=== PATIENT | male | born 1975 | race Hispanic/Latino ===

== ENCOUNTER 2019-12-22 07:18 | Inpatient (IN) | payer OTHER, SELFPAY ==
[~2019-12-22] VITALS: Ht 170.2 cm; Wt 103.6 kg
[2019-12-22] MEDS ORDERED: METHYLPREDNISOLONE SOD SUCC 40MG/ML 1ML ONE ×2 (08:05→14:15)
[2019-12-22] MEDS ORDERED: SODIUM CHLORIDE 0.9% 1000ML 1,000 ML IV ONE (08:05)
[2019-12-22] MEDS ORDERED: LEVOFLOXACIN 500 MG/D5W 100 ML 100 ML ONE (08:05)
[2019-12-22 08:20] LABS: BASOPHILS % (AUTO) 0.1 % (0.0-5.0); HEMATOCRIT 43.7 % (42-54); LYMPHOCYTES % (AUTO) 9.9 % (21.0-51.0); MEAN CORPUSCULAR HEMOGLOBIN 31.1 pg (27.0-33.0); MEAN CORPUSCULAR HGB CONC 34.8 g/dL (32.0-36.0); MEAN CORPUSCULAR VOLUME 89.4 fL (79-99); MONOCYTES % (AUTO) 5.1 % (3.0-13.0); NEUTROPHILS % (AUTO) 84.2 % (40.0-77.0); PLATELET COUNT (AUTO) 262 K/uL (130-400); RED BLOOD CELL COUNT(AUTO) 4.89 MIL/uL (4.50-6.20); RED CELL DISTRIBUTION WIDTH 12.5 % (11.0-15.5); WHITE BLOOD COUNT (AUTO) 10.7 K/uL (4.8-10.8)
[2019-12-22 08:33] LABS: BILIRUBIN,URINE Negative (NEGATIVE); GLUCOSE, URINE (UA) Negative (NEGATIVE); KETONES,URINE Negative (NEGATIVE); LEUKOCYTE ESTERASE ,URINE Negative (NEGATIVE); NITRATE,URINE Negative (NEGATIVE); OCCULT BLOOD,URINE Negative (NEGATIVE); PH,URINE 5.5 (5.0-8.0); PROTEIN,URINE POS 1+ mg/dL (NEGATIVE)
[2019-12-22 08:34] LABS: APPEARANCE,URINE SLIGHTLY CLOUDY (CLEAR); COLOR,URINE DARK YELLOW (YELLOW)
[2019-12-22 08:44] LABS: ALANINE AMINOTRANSFERASE 72 U/L (12-78); ALBUMIN 3.7 g/dL (3.5-5.0); ASPARTATE AMINOTRANSFERASE 56 U/L (10-37); BILIRUBIN,TOTAL 0.8 mg/dL (0.2-1.0); CARBON DIOXIDE 27 mmol/L (21-32); CHLORIDE 102 mmol/L (101-111); CREATINE KINASE, TOTAL 215 U/L (21-232); GLOMERULAR FILTR. RATE CALC 86 mL/min (>60); GLUCOSE,RANDOM 141 mg/dL (70-105); MYOGLOBIN 113 ng/mL (10-92); POTASSIUM 3.2 mmol/L (3.5-5.1); SODIUM SERUM 140 mmol/L (136-145); TOTAL PROTEIN, SERUM 8.4 g/dL (6.0-8.3); TROPONIN I < 0.04 ng/mL (0.00-0.06); UREA NITROGEN, BLOOD 22 mg/dL (7-18)
[2019-12-22 08:47] LABS: BACTERIA,URINE Rare /HPF (None Seen); RBC,URINE 0-1 /HPF (0-1); SQUAMOUS EPITHELIAL CELL,UR Rare /HPF (0-2)
[2019-12-22 08:53] LABS: INR 0.94 (0.85-1.15); PARTIAL THROMBOPLASTIN TIME 24.7 SEC (26.3-35.5); PROTHROMBIN TIME 10.2 SEC (9.6-11.6)
[2019-12-22] MEDS: BENZONATATE 100 MG CAPSULE PO SCH ×2 (14:00→21:00)
[2019-12-22] MEDS ORDERED: LACTULOSE 20 GM/30 ML UDCUP PO PRN (14:00)
[2019-12-22] MEDS ORDERED: ERGOCALCIFEROL (VITAMIN D2) 50,000 UNIT CAPSULE PO ONE (14:00)
[2019-12-22] MEDS ORDERED: ONDANSETRON HCL 4 MG/2 ML VIAL IV PRN (14:00)
[2019-12-22] MEDS ORDERED: NITROGLYCERIN 0.4 MG SL TAB SL PRN (14:00)
[2019-12-22] MEDS ORDERED: MORPHINE SULFATE 2 MG/ML 1ML SYG IV PRN (14:00)
[2019-12-22] MEDS: METHYLPREDNISOLONE SOD SUCC 40MG/ML 1ML IVP SCH ×2 (14:00→21:00)
[2019-12-22] MEDS ORDERED: ACETAMINOPHEN 325 MG TAB PO PRN ×2 (14:00)
[2019-12-22] MEDS: CEFTRIAXONE SODIUM 1 GM IVP SCH (14:00)
[2019-12-22] MEDS ORDERED: CEFTRIAXONE SODIUM 1 GM ONE (14:16)
[2019-12-22] MEDS ORDERED: BENZONATATE 100 MG CAPSULE PO ONE (14:16)
[2019-12-22] MEDS ORDERED: SODIUM CHLORIDE 0.9% 50 ML IV ONE (14:17)
[2019-12-22] MEDS ORDERED: FAMOTIDINE/PF 20 MG/2 ML VIAL IV ONE (20:59)
[2019-12-22] MEDS ORDERED: ACETYLCYSTEINE 600 MG CAPSULE ONE (20:59)
[2019-12-22] MEDS ORDERED: ERGOCALCIFEROL (VITAMIN D2) 50,000 UNIT CAPSULE ONE (20:59)
[2019-12-22] MEDS: FAMOTIDINE/PF 20 MG/2 ML VIAL IV SCH (21:00)
[2019-12-22] MEDS: ACETYLCYSTEINE 600 MG CAPSULE PO SCH (21:00)
[2019-12-22] MEDS ORDERED: DEXA4TAB PO (21:53)
[2019-12-22] MEDS ORDERED: AZIT250T9 PO (21:53)
[2019-12-22] MEDS ORDERED: BENZ-51 PO (21:53)
[2019-12-22 22:30] VITALS: BP 120/62
[2019-12-22] MEDS: GUAIFENESIN-DM 200/20 MG 10 ML PO PRN (23:08)
[2019-12-23] VITALS (10 sets, daily range): BP systolic 92–134; BP diastolic 50–69
[2019-12-23] MEDS: CEFTRIAXONE SODIUM 1 GM IVP SCH ×2 (02:04→13:29)
[2019-12-23 04:21] LABS: BASOPHILS % (AUTO) 0.1 % (0.0-5.0); HEMATOCRIT 40.4 % (42-54); LYMPHOCYTES % (AUTO) 8.2 % (21.0-51.0); MEAN CORPUSCULAR HEMOGLOBIN 30.5 pg (27.0-33.0); MEAN CORPUSCULAR HGB CONC 34.2 g/dL (32.0-36.0); MEAN CORPUSCULAR VOLUME 89.2 fL (79-99); MONOCYTES % (AUTO) 5.4 % (3.0-13.0); NEUTROPHILS % (AUTO) 85.6 % (40.0-77.0); PLATELET COUNT (AUTO) 275 K/uL (130-400); RED BLOOD CELL COUNT(AUTO) 4.53 MIL/uL (4.50-6.20); RED CELL DISTRIBUTION WIDTH 12.7 % (11.0-15.5); WHITE BLOOD COUNT (AUTO) 12.7 K/uL (4.8-10.8)
[2019-12-23 04:37] LABS: ALANINE AMINOTRANSFERASE 66 U/L (12-78); ALBUMIN 3.4 g/dL (3.5-5.0); ASPARTATE AMINOTRANSFERASE 51 U/L (10-37); BILIRUBIN,TOTAL 0.6 mg/dL (0.2-1.0); CARBON DIOXIDE 28 mmol/L (21-32); CHLORIDE 102 mmol/L (101-111); CREATININE 0.8 mg/dL (0.5-1.5); GLOMERULAR FILTR. RATE CALC 111 mL/min (>60); GLUCOSE,RANDOM 120 mg/dL (70-105); LACTATE DEHYDROGENASE 280 U/L (81-234); POTASSIUM 3.5 mmol/L (3.5-5.1); SODIUM SERUM 139 mmol/L (136-145); TOTAL PROTEIN, SERUM 7.6 g/dL (6.0-8.3); UREA NITROGEN, BLOOD 17 mg/dL (7-18)
[2019-12-23] MEDS ORDERED: ENOXAPARIN SODIUM 40 MG/0.4 ML SYRINGE SQ SCH (09:00)
[2019-12-23] MEDS: ACETYLCYSTEINE 600 MG CAPSULE PO SCH ×2 (09:48→21:00)
[2019-12-23] MEDS: METHYLPREDNISOLONE SOD SUCC 40MG/ML 1ML IVP SCH ×3 (09:48→21:00)
[2019-12-23] MEDS: FAMOTIDINE/PF 20 MG/2 ML VIAL IV SCH ×2 (09:48→21:00)
[2019-12-23] MEDS: ZINC SULFATE 220 CAPSULE PO SCH (09:49)
[2019-12-23] MEDS: BENZONATATE 100 MG CAPSULE PO SCH ×3 (09:49→21:00)
[2019-12-23] MEDS: ASCORBIC ACID 500 MG TAB PO SCH (09:49)
[2019-12-23 12:04] LABS: ABG BASE EXCESS 0.1 mmol/L (-2.0-3.0); ABG HCO3 22.1 mmol/L (21.0-28.0); ABG OXYGEN SATURATION 93.2 % (95.0-99.0); ABG PCO2 29 mmHg (35-48)
[2019-12-23] MEDS: GUAIFENESIN-DM 200/20 MG 10 ML PO PRN (15:55)
[2019-12-23] MEDS ORDERED: PHARMACY COMMUNICATION MISC SCH (17:00)
--- NOTE | 2019-12-23 18:01 | NUR ---
DC PLAN CALLED SPOUSE. PATIENT LIVES WITH SPOUSE. INDEPENDENT ABLE TO PERFORM ADL'S. PATIENT HAS NO SERVICES OR DME'S. FEELS SAFE TO RETURN HOME. SAID TESTED POSITIVE LAST WEEK. REST OF FAMILY TESTED NEGATIVE. AWARE TO QUARINTINE FOR 14 DAYS ANYWAY. Addendum: 12/23/19 at 1802 by RON DENNISON RN CM Amended: Links added.
[2019-12-23] MEDS: GUAIFENESIN-CODEINE 5 ML SYRUP PO PRN (18:57)
[2019-12-23] MEDS ORDERED: COMPOUND IV REFRIGERATED 1 EACH IVSOLN MISC PRN (20:00)
[2019-12-23] MEDS ORDERED: REMDESIVIR (EUA) 520 200 MG in SODIUM CHLORIDE 0.9% 250 ML IV ONE (20:00)
[2019-12-23] MEDS ORDERED: SODIUM CHLORIDE 0.9% 500ML 500 ML IV ONE (21:15)
[2019-12-24 00:01] VITALS: BP 118/67
[2019-12-24] MEDS: CEFTRIAXONE SODIUM 1 GM IVP SCH ×2 (02:00→13:47)
[2019-12-24 04:31] LABS: BASOPHILS % (AUTO) 0.1 % (0.0-5.0); HEMATOCRIT 37.1 % (42-54); LYMPHOCYTES % (AUTO) 5.2 % (21.0-51.0); MEAN CORPUSCULAR HGB CONC 34.8 g/dL (32.0-36.0); MEAN CORPUSCULAR VOLUME 89.2 fL (79-99); NEUTROPHILS % (AUTO) 89.3 % (40.0-77.0); PLATELET COUNT (AUTO) 291 K/uL (130-400); RED BLOOD CELL COUNT(AUTO) 4.16 MIL/uL (4.50-6.20); RED CELL DISTRIBUTION WIDTH 12.6 % (11.0-15.5); WHITE BLOOD COUNT (AUTO) 15.3 K/uL (4.8-10.8)
[2019-12-24 04:54] LABS: ALANINE AMINOTRANSFERASE 79 U/L (12-78); ALBUMIN 3.2 g/dL (3.5-5.0); ASPARTATE AMINOTRANSFERASE 50 U/L (10-37); BILIRUBIN,TOTAL 0.8 mg/dL (0.2-1.0); CARBON DIOXIDE 29 mmol/L (21-32); CHLORIDE 101 mmol/L (101-111); CREATININE 0.8 mg/dL (0.5-1.5); GLOMERULAR FILTR. RATE CALC 111 mL/min (>60); GLUCOSE,RANDOM 152 mg/dL (70-105); LACTATE DEHYDROGENASE 296 U/L (81-234); POTASSIUM 3.7 mmol/L (3.5-5.1); SODIUM SERUM 136 mmol/L (136-145); TOTAL PROTEIN, SERUM 7.5 g/dL (6.0-8.3); UREA NITROGEN, BLOOD 15 mg/dL (7-18)
[2019-12-24] MEDS: PHARMACY COMMUNICATION MISC SCH (06:00)
[2019-12-24 08:00] VITALS: BP 119/65
[2019-12-24] MEDS: FAMOTIDINE/PF 20 MG/2 ML VIAL IV SCH ×2 (11:01→21:20)
[2019-12-24] MEDS: ACETYLCYSTEINE 600 MG CAPSULE PO SCH ×2 (11:08→21:20)
[2019-12-24] MEDS: BENZONATATE 100 MG CAPSULE PO SCH ×3 (11:08→21:20)
[2019-12-24] MEDS: METHYLPREDNISOLONE SOD SUCC 40MG/ML 1ML IVP SCH ×3 (11:08→21:20)
[2019-12-24] MEDS: ZINC SULFATE 220 CAPSULE PO SCH (11:09)
[2019-12-24] MEDS: ASCORBIC ACID 500 MG TAB PO SCH (11:09)
[2019-12-24] MEDS: DOCUSATE SODIUM 100 MG CAP PO SCH (11:09)
[2019-12-24] MEDS: ENOXAPARIN SODIUM 40 MG/0.4 ML SYRINGE SQ SCH ×2 (11:11→22:00)
[2019-12-24 12:01] VITALS: BP 143/53
[2019-12-24 16:00] VITALS: BP 114/68
[2019-12-24] MEDS ORDERED: REMDESIVIR (EUA) 520 100 MG in SODIUM CHLORIDE 0.9% 250 ML IV SCH (20:00)
[2019-12-24 21:00] VITALS: BP 111/60
[2019-12-25 00:06] VITALS: BP 108/61
[2019-12-25] MEDS: CEFTRIAXONE SODIUM 1 GM IVP SCH ×2 (03:01→14:22)
[2019-12-25 04:24] LABS: BASOPHILS % (AUTO) 0.3 % (0.0-5.0); EOSINOPHILS % (AUTO) 0.6 % (0.0-8.0); HEMATOCRIT 38.9 % (42-54); LYMPHOCYTES % (AUTO) 5.8 % (21.0-51.0); MEAN CORPUSCULAR HEMOGLOBIN 30.4 pg (27.0-33.0); MEAN CORPUSCULAR HGB CONC 34.2 g/dL (32.0-36.0); MEAN CORPUSCULAR VOLUME 88.8 fL (79-99); MONOCYTES % (AUTO) 3.7 % (3.0-13.0); NEUTROPHILS % (AUTO) 86.5 % (40.0-77.0); PLATELET COUNT (AUTO) 366 K/uL (130-400); RED BLOOD CELL COUNT(AUTO) 4.38 MIL/uL (4.50-6.20); RED CELL DISTRIBUTION WIDTH 12.6 % (11.0-15.5)
[2019-12-25 04:41] LABS: ALANINE AMINOTRANSFERASE 75 U/L (12-78); ASPARTATE AMINOTRANSFERASE 43 U/L (10-37); BILIRUBIN,TOTAL 0.6 mg/dL (0.2-1.0); CARBON DIOXIDE 28 mmol/L (21-32); CHLORIDE 101 mmol/L (101-111); CREATININE 0.8 mg/dL (0.5-1.5); GLOMERULAR FILTR. RATE CALC 111 mL/min (>60); GLUCOSE,RANDOM 149 mg/dL (70-105); LACTATE DEHYDROGENASE 333 U/L (81-234); POTASSIUM 3.7 mmol/L (3.5-5.1); SODIUM SERUM 139 mmol/L (136-145); TOTAL PROTEIN, SERUM 7.7 g/dL (6.0-8.3); UREA NITROGEN, BLOOD 20 mg/dL (7-18)
[2019-12-25] MEDS: PHARMACY COMMUNICATION MISC SCH (06:00)
[2019-12-25 08:00] VITALS: BP 101/52
[2019-12-25] MEDS ORDERED: REMDESIVIR (EUA) 520 100 MG in SODIUM CHLORIDE 0.9% 250 ML IV SCH (08:15)
[2019-12-25] MEDS: METHYLPREDNISOLONE SOD SUCC 40MG/ML 1ML IVP SCH (08:30)
[2019-12-25] MEDS: ASCORBIC ACID 500 MG TAB PO SCH (08:31)
[2019-12-25] MEDS: BENZONATATE 100 MG CAPSULE PO SCH ×3 (08:31→21:59)
[2019-12-25] MEDS: FAMOTIDINE/PF 20 MG/2 ML VIAL IV SCH ×2 (08:31→21:59)
[2019-12-25] MEDS: ACETYLCYSTEINE 600 MG CAPSULE PO SCH ×2 (08:31→21:59)
[2019-12-25] MEDS: ZINC SULFATE 220 CAPSULE PO SCH (08:31)
[2019-12-25] MEDS: DOCUSATE SODIUM 100 MG CAP PO SCH (08:31)
[2019-12-25] MEDS: ENOXAPARIN SODIUM 40 MG/0.4 ML SYRINGE SQ SCH ×2 (09:26→22:00)
[2019-12-25 12:00] VITALS: BP 125/75
[2019-12-25 16:00] VITALS: BP 106/59
[2019-12-25 19:19] VITALS: BP 126/65
[2019-12-25] MEDS: DEXAMETHASONE SOD PHOSPHATE 4 MG/ML 1ML VIAL IVP SCH (21:59)
[2019-12-26 00:01] VITALS: BP 102/47
[2019-12-26] MEDS: CEFTRIAXONE SODIUM 1 GM IVP SCH ×2 (02:13→13:50)
[2019-12-26 04:01] VITALS: BP 94/44
[2019-12-26 04:41] LABS: CREATININE 0.8 mg/dL (0.5-1.5); POTASSIUM 3.8 mmol/L (3.5-5.1)
[2019-12-26 07:00] VITALS: BP 114/62
[2019-12-26] MEDS: DEXAMETHASONE SOD PHOSPHATE 4 MG/ML 1ML VIAL IVP SCH ×2 (08:37→22:38)
[2019-12-26] MEDS: DOCUSATE SODIUM 100 MG CAP PO SCH (08:37)
[2019-12-26] MEDS: ASCORBIC ACID 500 MG TAB PO SCH (08:37)
[2019-12-26] MEDS: ZINC SULFATE 220 CAPSULE PO SCH (08:37)
[2019-12-26] MEDS: BENZONATATE 100 MG CAPSULE PO SCH ×3 (08:38→22:38)
[2019-12-26] MEDS: ACETYLCYSTEINE 600 MG CAPSULE PO SCH ×2 (08:38→22:38)
[2019-12-26] MEDS: FAMOTIDINE/PF 20 MG/2 ML VIAL IV SCH ×2 (08:39→22:38)
[2019-12-26] MEDS: ENOXAPARIN SODIUM 40 MG/0.4 ML SYRINGE SQ SCH ×2 (09:41→22:38)
[2019-12-26 11:00] VITALS: BP 111/63
[2019-12-26] MEDS: REMDESIVIR (EUA) 520 100 MG in SODIUM CHLORIDE 0.9% 250 ML IV SCH (13:50)
[2019-12-26 15:00] VITALS: BP 101/52
[2019-12-26 19:25] VITALS: BP 121/65
[2019-12-27] VITALS (11 sets, daily range): BP systolic 80–119; BP diastolic 38–75
[2019-12-27] MEDS: CEFTRIAXONE SODIUM 1 GM IVP SCH ×2 (02:35→13:36)
[2019-12-27] MEDS ORDERED: LOSA1TAB54 PO (03:24)
[2019-12-27] MEDS ORDERED: PRED10TA23 PO (03:51)
[2019-12-27] MEDS ORDERED: PRED10TA3 PO (03:51)
[2019-12-27] MEDS ORDERED: CEPH750C7 PO (03:51)
[2019-12-27] MEDS ORDERED: ASPI-1005 PO (03:51)
[2019-12-27 04:20] LABS: BASOPHILS % (AUTO) 0.6 % (0.0-5.0); HEMATOCRIT 39.6 % (42-54); LYMPHOCYTES % (AUTO) 7.8 % (21.0-51.0); MEAN CORPUSCULAR HEMOGLOBIN 30.3 pg (27.0-33.0); MEAN CORPUSCULAR HGB CONC 34.1 g/dL (32.0-36.0); MEAN CORPUSCULAR VOLUME 88.8 fL (79-99); MONOCYTES % (AUTO) 4.9 % (3.0-13.0); NEUTROPHILS % (AUTO) 80.7 % (40.0-77.0); PLATELET COUNT (AUTO) 428 K/uL (130-400); RED BLOOD CELL COUNT(AUTO) 4.46 MIL/uL (4.50-6.20); RED CELL DISTRIBUTION WIDTH 12.3 % (11.0-15.5); WHITE BLOOD COUNT (AUTO) 14.2 K/uL (4.8-10.8)
[2019-12-27 04:32] LABS: ALBUMIN 2.9 g/dL (3.5-5.0); BILIRUBIN,TOTAL 0.6 mg/dL (0.2-1.0); CREATININE 0.7 mg/dL (0.5-1.5); CRP QUANTITATIVE 37.5 mg/L (0.00-9.0); POTASSIUM 4.1 mmol/L (3.5-5.1); TOTAL PROTEIN, SERUM 7.2 g/dL (6.0-8.3)
[2019-12-27] MEDS: PHARMACY COMMUNICATION MISC SCH ×2 (06:00→06:38)
[2019-12-27] MEDS: FAMOTIDINE/PF 20 MG/2 ML VIAL IV SCH ×2 (08:31→21:03)
[2019-12-27] MEDS: ZINC SULFATE 220 CAPSULE PO SCH (08:32)
[2019-12-27] MEDS: DEXAMETHASONE SOD PHOSPHATE 4 MG/ML 1ML VIAL IVP SCH ×2 (08:32→21:03)
[2019-12-27] MEDS: ASCORBIC ACID 500 MG TAB PO SCH (08:32)
[2019-12-27] MEDS: BENZONATATE 100 MG CAPSULE PO SCH ×3 (08:32→21:04)
[2019-12-27] MEDS: ACETYLCYSTEINE 600 MG CAPSULE PO SCH ×2 (08:32→21:03)
[2019-12-27] MEDS: DOCUSATE SODIUM 100 MG CAP PO SCH (08:32)
[2019-12-27] MEDS: ENOXAPARIN SODIUM 40 MG/0.4 ML SYRINGE SQ SCH ×2 (10:20→22:00)
[2019-12-27] MEDS: GUAIFENESIN-CODEINE 5 ML SYRUP PO PRN ×2 (10:25→21:04)
[2019-12-27] MEDS: REMDESIVIR (EUA) 520 100 MG in SODIUM CHLORIDE 0.9% 250 ML IV SCH (13:37)
--- NOTE | 2019-12-27 19:00 | NUR ---
ACCEPTED CARE ACCEPTED CARE REPORT RECEIVED USING SBAR FORMAT.
[2019-12-28] VITALS (11 sets, daily range): BP systolic 100–126; BP diastolic 54–72
[2019-12-28] MEDS: CEFTRIAXONE SODIUM 1 GM IVP SCH (01:19)
[2019-12-28] MEDS: GUAIFENESIN-CODEINE 5 ML SYRUP PO PRN ×2 (01:21→06:54)
[2019-12-28 04:47] LABS: BASOPHILS % (AUTO) 0.6 % (0.0-5.0); HEMATOCRIT 40.7 % (42-54); LYMPHOCYTES % (AUTO) 7.8 % (21.0-51.0); MEAN CORPUSCULAR HEMOGLOBIN 30.5 pg (27.0-33.0); MEAN CORPUSCULAR HGB CONC 34.2 g/dL (32.0-36.0); MEAN CORPUSCULAR VOLUME 89.5 fL (79-99); MONOCYTES % (AUTO) 4.1 % (3.0-13.0); NEUTROPHILS % (AUTO) 81.7 % (40.0-77.0); PLATELET COUNT (AUTO) 440 K/uL (130-400); RED BLOOD CELL COUNT(AUTO) 4.55 MIL/uL (4.50-6.20); RED CELL DISTRIBUTION WIDTH 12.3 % (11.0-15.5); WHITE BLOOD COUNT (AUTO) 14.6 K/uL (4.8-10.8)
[2019-12-28 05:04] LABS: BILIRUBIN,TOTAL 0.5 mg/dL (0.2-1.0); CREATININE 0.9 mg/dL (0.5-1.5); CRP QUANTITATIVE 23.2 mg/L (0.00-9.0); TOTAL PROTEIN, SERUM 7.3 g/dL (6.0-8.3)
[2019-12-28] MEDS: PHARMACY COMMUNICATION MISC SCH (06:00)
[2019-12-28] MEDS: ENOXAPARIN SODIUM 40 MG/0.4 ML SYRINGE SQ SCH ×2 (08:43→23:39)
[2019-12-28] MEDS: DEXAMETHASONE SOD PHOSPHATE 4 MG/ML 1ML VIAL IVP SCH ×2 (08:44→20:26)
[2019-12-28] MEDS: BENZONATATE 100 MG CAPSULE PO SCH ×3 (08:44→20:26)
[2019-12-28] MEDS: ASCORBIC ACID 500 MG TAB PO SCH (08:44)
[2019-12-28] MEDS: DOCUSATE SODIUM 100 MG CAP PO SCH (08:44)
[2019-12-28] MEDS: ZINC SULFATE 220 CAPSULE PO SCH (08:44)
[2019-12-28] MEDS: FAMOTIDINE/PF 20 MG/2 ML VIAL IV SCH ×2 (08:44→20:26)
[2019-12-28] MEDS: ACETYLCYSTEINE 600 MG CAPSULE PO SCH ×2 (09:00→20:26)
[2019-12-28] MEDS: GUAIFENESIN-CODEINE 5 ML SYRUP PO SCH ×3 (14:23→23:40)
[2019-12-28] MEDS: REMDESIVIR (EUA) 520 100 MG in SODIUM CHLORIDE 0.9% 250 ML IV SCH (14:23)
--- NOTE | 2019-12-28 19:00 | NUR ---
ACCEPTED CARE ACCEPTED CARE REPORT RECEIVED USING SBAR FORMAT. PATIENT IS AWAKE SITTING IN CHAIR WATCHING TV AND IN NO APPARENT DISTRESS.
[2019-12-29] VITALS (9 sets, daily range): BP systolic 92–115; BP diastolic 46–63
[2019-12-29 04:11] LABS: BASOPHILS % (AUTO) 0.6 % (0.0-5.0); EOSINOPHILS % (AUTO) 0.1 % (0.0-8.0); LYMPHOCYTES % (AUTO) 10.4 % (21.0-51.0); MEAN CORPUSCULAR HEMOGLOBIN 30.3 pg (27.0-33.0); MEAN CORPUSCULAR HGB CONC 34.4 g/dL (32.0-36.0); MEAN CORPUSCULAR VOLUME 88.2 fL (79-99); MONOCYTES % (AUTO) 6.5 % (3.0-13.0); NEUTROPHILS % (AUTO) 77.3 % (40.0-77.0); PLATELET COUNT (AUTO) 426 K/uL (130-400); RED BLOOD CELL COUNT(AUTO) 4.65 MIL/uL (4.50-6.20); RED CELL DISTRIBUTION WIDTH 12.5 % (11.0-15.5); WHITE BLOOD COUNT (AUTO) 15.7 K/uL (4.8-10.8)
[2019-12-29 04:27] LABS: ALBUMIN 3.1 g/dL (3.5-5.0); BILIRUBIN,TOTAL 0.6 mg/dL (0.2-1.0); CREATININE 0.8 mg/dL (0.5-1.5); CRP QUANTITATIVE 20.7 mg/L (0.00-9.0); POTASSIUM 4.1 mmol/L (3.5-5.1); TOTAL PROTEIN, SERUM 7.2 g/dL (6.0-8.3)
[2019-12-29] MEDS: GUAIFENESIN-CODEINE 5 ML SYRUP PO SCH ×3 (06:21→18:00)
[2019-12-29] MEDS: FAMOTIDINE/PF 20 MG/2 ML VIAL IV SCH ×2 (10:26→21:22)
[2019-12-29] MEDS: ACETYLCYSTEINE 600 MG CAPSULE PO SCH ×2 (10:26→21:22)
[2019-12-29] MEDS: DEXAMETHASONE SOD PHOSPHATE 4 MG/ML 1ML VIAL IVP SCH (10:26)
[2019-12-29] MEDS: DOCUSATE SODIUM 100 MG CAP PO SCH (10:26)
[2019-12-29] MEDS: ENOXAPARIN SODIUM 40 MG/0.4 ML SYRINGE SQ SCH ×2 (10:27→22:45)
[2019-12-29] MEDS: ZINC SULFATE 220 CAPSULE PO SCH (10:27)
[2019-12-29] MEDS: BENZONATATE 100 MG CAPSULE PO SCH ×3 (10:27→21:22)
[2019-12-29] MEDS: ASCORBIC ACID 500 MG TAB PO SCH (10:27)
[2019-12-30 04:00] VITALS: BP 93/52
[2019-12-30 06:06] LABS: CRP QUANTITATIVE 18.1 mg/L (0.00-9.0)
[2019-12-30 07:48] VITALS: BP 97/60
[2019-12-30] MEDS: DOCUSATE SODIUM 100 MG CAP PO SCH (09:00)
[2019-12-30] MEDS: FAMOTIDINE/PF 20 MG/2 ML VIAL IV SCH ×2 (09:00→21:39)
[2019-12-30] MEDS: DEXAMETHASONE SOD PHOSPHATE 4 MG/ML 1ML VIAL IVP SCH ×2 (13:06→21:39)
[2019-12-30] MEDS: GUAIFENESIN-CODEINE 5 ML SYRUP PO SCH ×4 (13:06→23:53)
[2019-12-30] MEDS: ASCORBIC ACID 500 MG TAB PO SCH (13:07)
[2019-12-30] MEDS: BENZONATATE 100 MG CAPSULE PO SCH ×3 (13:07→21:39)
[2019-12-30] MEDS: ZINC SULFATE 220 CAPSULE PO SCH (13:07)
[2019-12-30] MEDS: ACETYLCYSTEINE 600 MG CAPSULE PO SCH ×2 (13:07→21:39)
[2019-12-30] MEDS: ENOXAPARIN SODIUM 40 MG/0.4 ML SYRINGE SQ SCH ×2 (13:10→21:40)
--- NOTE | 2019-12-30 14:42 | NUR ---
RDSCREEN - LOS X 8 Pt admitted with Acute Resp Failure, positive COVID-19. Pt is tolerating Heart Healthy diet order with no report of GI distress. PO intake not available today. Called to Pt room with no answer. Obesity Class II. Pt is up and seated in chair yesterday evening per RN note. Continues with cough. Recommend continue Heart Healthy diet order Recommend Ensure QD RD to continue to monitor. Please notify as additional nutrition concerns arise. Addendum: 12/30/19 at [address] RD Amended: Links added.
[2019-12-30 15:19] VITALS: BP 111/55
[2019-12-30 16:01] VITALS: BP 107/49
[2019-12-30 20:00] VITALS: BP 111/55
[2019-12-31 00:03] VITALS: BP 101/65
[2019-12-31 04:00] VITALS: BP 106/65
[2019-12-31 04:47] LABS: BASOPHILS % (AUTO) 0.3 % (0.0-5.0); LYMPHOCYTES % (AUTO) 6.3 % (21.0-51.0); MEAN CORPUSCULAR HEMOGLOBIN 30.2 pg (27.0-33.0); MEAN CORPUSCULAR VOLUME 88.8 fL (79-99); MONOCYTES % (AUTO) 3.1 % (3.0-13.0); NEUTROPHILS % (AUTO) 85.9 % (40.0-77.0); PLATELET COUNT (AUTO) 416 K/uL (130-400); RED BLOOD CELL COUNT(AUTO) 4.73 MIL/uL (4.50-6.20); RED CELL DISTRIBUTION WIDTH 12.4 % (11.0-15.5); WHITE BLOOD COUNT (AUTO) 14.7 K/uL (4.8-10.8)
[2019-12-31 05:00] LABS: CREATININE 0.8 mg/dL (0.5-1.5); POTASSIUM 4.5 mmol/L (3.5-5.1)
[2019-12-31] MEDS: GUAIFENESIN-CODEINE 5 ML SYRUP PO SCH ×3 (07:02→18:16)
[2019-12-31 08:00] VITALS: BP 121/61
[2019-12-31] MEDS: ZINC SULFATE 220 CAPSULE PO SCH (08:55)
[2019-12-31] MEDS: ASCORBIC ACID 500 MG TAB PO SCH (08:55)
[2019-12-31] MEDS: FAMOTIDINE/PF 20 MG/2 ML VIAL IV SCH ×2 (08:55→21:16)
[2019-12-31] MEDS: DEXAMETHASONE SOD PHOSPHATE 4 MG/ML 1ML VIAL IVP SCH ×2 (08:55→21:16)
[2019-12-31] MEDS: ACETYLCYSTEINE 600 MG CAPSULE PO SCH ×2 (08:55→21:16)
[2019-12-31] MEDS: DOCUSATE SODIUM 100 MG CAP PO SCH (08:56)
[2019-12-31] MEDS: BENZONATATE 100 MG CAPSULE PO SCH ×3 (09:00→21:16)
[2019-12-31] MEDS: ENOXAPARIN SODIUM 40 MG/0.4 ML SYRINGE SQ SCH (09:00)
[2019-12-31 12:00] VITALS: BP 144/64
[2019-12-31 18:51] VITALS: BP 112/64
[2019-12-31 20:00] VITALS: BP 106/62
[2020-01-01] VITALS: BP 110/72
[2020-01-01] MEDS: GUAIFENESIN-CODEINE 5 ML SYRUP PO SCH ×4 (00:12→17:22)
[2020-01-01] MEDS: ENOXAPARIN SODIUM 80 MG/0.8 ML SQ SCH ×2 (00:12→10:18)
[2020-01-01 04:00] VITALS: BP_SYST 108; BP_SYST 97; BP_DIAS 59; BP_DIAS 62
[2020-01-01 04:19] LABS: BASOPHILS % (AUTO) 0.2 % (0.0-5.0); EOSINOPHILS % (AUTO) 0.1 % (0.0-8.0); HEMATOCRIT 39.2 % (42-54); LYMPHOCYTES % (AUTO) 4.8 % (21.0-51.0); MEAN CORPUSCULAR HEMOGLOBIN 30.8 pg (27.0-33.0); MEAN CORPUSCULAR HGB CONC 34.7 g/dL (32.0-36.0); MEAN CORPUSCULAR VOLUME 88.9 fL (79-99); MONOCYTES % (AUTO) 2.3 % (3.0-13.0); NEUTROPHILS % (AUTO) 90.5 % (40.0-77.0); PLATELET COUNT (AUTO) 407 K/uL (130-400); RED BLOOD CELL COUNT(AUTO) 4.41 MIL/uL (4.50-6.20); RED CELL DISTRIBUTION WIDTH 12.4 % (11.0-15.5); WHITE BLOOD COUNT (AUTO) 18.2 K/uL (4.8-10.8)
[2020-01-01 04:35] LABS: ALBUMIN 2.7 g/dL (3.5-5.0); BILIRUBIN,TOTAL 0.6 mg/dL (0.2-1.0); CREATININE 0.9 mg/dL (0.5-1.5); CRP QUANTITATIVE 26.9 mg/L (0.00-9.0); POTASSIUM 4.5 mmol/L (3.5-5.1); TOTAL PROTEIN, SERUM 6.6 g/dL (6.0-8.3)
[2020-01-01 08:00] VITALS: BP 97/52
--- NOTE | 2020-01-01 08:30 | NUR ---
AM ASSESSMENT PT LAYING IN BED, RESTING. A/O X 3. SOB ON EXERTION & @ REST. O2 HFNC @ 20 L, 50 % FIO2. (+) COUGH. CONT PULSE OX, 95%. DENIES CHEST PAIN OR DISCOMFORT. DENIES PALPITATIONS. TELE: SR. DENIES N/V AND/OR DIARRHEA. BEDREST. INSTRUCTED TO CALL FOR ASSISTANCE. CALL [facility] W/IN REACH.
[2020-01-01] MEDS: BENZONATATE 100 MG CAPSULE PO SCH ×3 (08:45→21:00)
[2020-01-01] MEDS: DOCUSATE SODIUM 100 MG CAP PO SCH (08:45)
--- NOTE | 2020-01-01 08:45 | NUR ---
STATUS/OUTSIDE FOOD INFORMED BY PT FAMILY HAD BROUGHT A "BROWN BAG" FOR HIM & DROPPED IT OF @ ER ENTRANCE W/SECURITY. WHEN ASKED PT CONTENTS OF BROWN BAG, PT INFORMED ME "BARBACOA." INFORMED PT NO OUTSIDE FOOD IS ALLOWED FOR PTS @ THIS TIME.
[2020-01-01] MEDS: ACETYLCYSTEINE 600 MG CAPSULE PO SCH ×2 (08:46→21:00)
[2020-01-01] MEDS: DEXAMETHASONE SOD PHOSPHATE 4 MG/ML 1ML VIAL IVP SCH ×2 (08:47→21:00)
[2020-01-01] MEDS: ASCORBIC ACID 500 MG TAB PO SCH (08:47)
[2020-01-01] MEDS: FAMOTIDINE/PF 20 MG/2 ML VIAL IV SCH ×2 (08:47→21:00)
[2020-01-01] MEDS: ZINC SULFATE 220 CAPSULE PO SCH (08:49)
[2020-01-01 12:00] VITALS: BP 102/47
[2020-01-01 16:00] VITALS: BP 105/56
[2020-01-01 20:00] VITALS: BP 93/60
[2020-01-01] MEDS ORDERED: ENOXAPARIN SODIUM 80 MG/0.8 ML SQ SCH (21:00)
[2020-01-02] VITALS: BP 97/59
[2020-01-02] MEDS: GUAIFENESIN-CODEINE 5 ML SYRUP PO SCH ×4 (00:02→18:47)
[2020-01-02 04:00] VITALS: BP 92/52
[2020-01-02] MEDS: FAMOTIDINE/PF 20 MG/2 ML VIAL IV SCH ×2 (08:16→20:56)
[2020-01-02] MEDS: DEXAMETHASONE SOD PHOSPHATE 4 MG/ML 1ML VIAL IVP SCH ×2 (08:16→20:57)
[2020-01-02] MEDS: VITAMIN B COMPLEX 1 CAPSULE PO SCH (08:17)
[2020-01-02] MEDS: DOCUSATE SODIUM 100 MG CAP PO SCH (08:17)
[2020-01-02] MEDS: ASCORBIC ACID 500 MG TAB PO SCH (08:17)
[2020-01-02] MEDS: ACETYLCYSTEINE 600 MG CAPSULE PO SCH ×2 (08:17→20:56)
[2020-01-02] MEDS: THIAMINE HCL 100 MG TABLET PO SCH (08:17)
[2020-01-02] MEDS: ZINC SULFATE 220 CAPSULE PO SCH (08:17)
[2020-01-02] MEDS: BENZONATATE 100 MG CAPSULE PO SCH ×3 (08:18→20:56)
[2020-01-02 09:37] VITALS: BP 103/57
[2020-01-02 12:12] VITALS: BP 114/63
[2020-01-02 17:00] VITALS: BP 109/67
--- NOTE | 2020-01-02 19:56 | NUR ---
Patient received on NRB with POX of 89 and HR in the 120s. Patient is encouraged to lay in prone position which she could not tolerate. Patient is lying on her side now with POX 96 to 98%, HR is down to 99 to 102. ABG is done by respiratory with no change from previous one on 01/01/2020. Will continue to monitor. Addendum: 01/02/20 at 2014 by BERNIE REYES RN RN DISREGARD ABOVE NOTE. WRONG PATIENT.
[2020-01-02 20:09] VITALS: BP 113/69
--- NOTE | 2020-01-02 20:12 | NUR ---
DISREGARD. WRONG PATIENT.
[2020-01-02] MEDS: ENOXAPARIN SODIUM 80 MG/0.8 ML SQ SCH (20:58)
[2020-01-03 00:07] VITALS: BP 110/70
[2020-01-03] MEDS: GUAIFENESIN-CODEINE 5 ML SYRUP PO SCH ×4 (00:34→23:39)
[2020-01-03 04:00] VITALS: BP 116/72
--- NOTE | 2020-01-03 06:45 | NUR ---
No acute respiratory distress this shift. Patient slept on and off in prone position with POX between 96-98% on 15L NRB mask. Patient is awake now and sitting up in chair at bed side. No new variance at this time.
[2020-01-03] MEDS: DOCUSATE SODIUM 100 MG CAP PO SCH (09:00)
[2020-01-03] MEDS: ACETYLCYSTEINE 600 MG CAPSULE PO SCH ×2 (09:00→20:22)
[2020-01-03 09:07] VITALS: BP 130/71
[2020-01-03] MEDS: THIAMINE HCL 100 MG TABLET PO SCH (09:29)
[2020-01-03] MEDS: BENZONATATE 100 MG CAPSULE PO SCH ×3 (09:29→20:22)
[2020-01-03] MEDS: ASCORBIC ACID 500 MG TAB PO SCH (09:29)
[2020-01-03] MEDS: ZINC SULFATE 220 CAPSULE PO SCH (09:29)
[2020-01-03] MEDS: FAMOTIDINE/PF 20 MG/2 ML VIAL IV SCH ×2 (09:29→20:22)
[2020-01-03] MEDS: DEXAMETHASONE SOD PHOSPHATE 4 MG/ML 1ML VIAL IVP SCH ×2 (09:29→09:30)
[2020-01-03] MEDS: VITAMIN B COMPLEX 1 CAPSULE PO SCH (09:29)
[2020-01-03 12:13] VITALS: BP 94/69
[2020-01-03 16:43] VITALS: BP 124/80
[2020-01-03] MEDS: ENOXAPARIN SODIUM 80 MG/0.8 ML SQ SCH (20:22)
[2020-01-03 20:27] VITALS: BP 106/53
[2020-01-04 01:19] VITALS: BP 107/68
[2020-01-04 04:06] VITALS: BP 91/57
[2020-01-04 04:58] LABS: BASOPHILS % (AUTO) 0.2 % (0.0-5.0); EOSINOPHILS % (AUTO) 0.3 % (0.0-8.0); LYMPHOCYTES % (AUTO) 15.3 % (21.0-51.0); MEAN CORPUSCULAR HEMOGLOBIN 30.7 pg (27.0-33.0); MEAN CORPUSCULAR HGB CONC 34.4 g/dL (32.0-36.0); MEAN CORPUSCULAR VOLUME 89.4 fL (79-99); MONOCYTES % (AUTO) 6.2 % (3.0-13.0); NEUTROPHILS % (AUTO) 76.8 % (40.0-77.0); PLATELET COUNT (AUTO) 358 K/uL (130-400); RED BLOOD CELL COUNT(AUTO) 4.36 MIL/uL (4.50-6.20); RED CELL DISTRIBUTION WIDTH 12.9 % (11.0-15.5); WHITE BLOOD COUNT (AUTO) 16.2 K/uL (4.8-10.8)
[2020-01-04 05:15] LABS: CREATININE 0.7 mg/dL (0.5-1.5); MAGNESIUM 2.2 mg/dL (1.80-2.40); PHOSPHORUS 3.6 mg/dL (2.5-4.9); POTASSIUM 3.8 mmol/L (3.5-5.1)
[2020-01-04] MEDS: GUAIFENESIN-CODEINE 5 ML SYRUP PO SCH ×2 (05:30→12:58)
[2020-01-04 07:00] VITALS: BP 92/59
[2020-01-04] MEDS: FAMOTIDINE/PF 20 MG/2 ML VIAL IV SCH (08:11)
[2020-01-04] MEDS: VITAMIN B COMPLEX 1 CAPSULE PO SCH (08:12)
[2020-01-04] MEDS: DEXAMETHASONE SOD PHOSPHATE 4 MG/ML 1ML VIAL IVP SCH (08:12)
[2020-01-04] MEDS: ZINC SULFATE 220 CAPSULE PO SCH (08:12)
[2020-01-04] MEDS: THIAMINE HCL 100 MG TABLET PO SCH (08:12)
[2020-01-04] MEDS: ASCORBIC ACID 500 MG TAB PO SCH (08:12)
[2020-01-04] MEDS: DOCUSATE SODIUM 100 MG CAP PO SCH (08:13)
[2020-01-04] MEDS: ACETYLCYSTEINE 600 MG CAPSULE PO SCH (08:31)
[2020-01-04 08:47] LABS: ABG BASE EXCESS -1.3 mmol/L (-2.0-3.0); ABG HCO3 21.2 mmol/L (21.0-28.0); ABG OXYGEN SATURATION 94.4 % (95.0-99.0); ABG PCO2 30 mmHg (35-48)
[2020-01-04] MEDS: BENZONATATE 100 MG CAPSULE PO SCH ×2 (09:03→15:00)
[2020-01-04 11:00] VITALS: BP 108/64
[2020-01-04 16:00] VITALS: BP 120/73
--- NOTE | 2020-01-04 16:02 | NUR ---
RD FOLLOW UP Pt continues with Heart Healthy diet order, Ensure supplementation in place. Good PO intake at 75-100%. LBM 12/31/19. Monitored labs: WBC 16.2, Alb 2.7. Obesity II status. Vitamin C and Zinc in place, in addition to MVI. Pt proning intermittently. Recommend continue Heart healthy diet order, Ensure QD Recommend add 60mL ProMod QD RD to continue to monitor. Please notify as additional nutrition concerns arise. Thank you. Addendum: 01/04/20 at [address] RD Amended: Links added.
== END 2020-01-04 16:20 | disposition home or self-care (01) | DRG 177 ==
LOC: EDH 07:18 → EDHIP 07:19 → 2BH 21:33 → 2AH 01-02 13:10
PROVIDERS: ADMIT Hospitalist; ATTEND Hospitalist
PROC: XW033E5 Introduction of Remdesivir Anti-infective into Peripheral Vein, Percutaneous Approach, New Technology Group 5 (ICD-10-PCS; 2019-12-23)
PROC: XW13325 Transfusion of Convalescent Plasma (Nonautologous) into Peripheral Vein, Percutaneous Approach, New Technology Group 5 (ICD-10-PCS; principal; 2019-12-24)
DX: U07.1 COVID-19 (principal); J12.89 Other viral pneumonia; J96.01 Acute respiratory failure with hypoxia; E66.9 Obesity, unspecified; Z68.36 Body mass index [BMI] 36.0-36.9, adult; Z79.01 Long term (current) use of anticoagulants; Z86.19 Personal history of other infectious and parasitic diseases
CPT/HCPCS: 36415; 36430; 36600; 71045; 80048; 80053; 81001; 82550; 82728; 82803; 83605; 83615; 83735; 83874; 84100; 84145; 84484; 85025; 85378; 85610; 85730; 86140; 86850; 86900; 86901; 86927; 87040; 87088; 87426; 93005; 94760; 99291; G0378; J0696; J1100; J1650; J1956; J2920; J3490; J7030; J7040; J7050